=== PATIENT | female | born 1940 | race Caucasian/White ===

== ENCOUNTER → 2020-10-14 | Outpatient (CLI) | payer MEDICARE ==
--- NOTE | 2020-10-14 10:41 | RAD ---
Bilateral lower extremity arterial duplex ultrasound study without comparison for nonhealing wounds t he bilateral lower extremities. TECHNIQUE AND FINDINGS: Real-time grayscale and color and spectral Doppler evaluation of the arteries of lower extremities is performed. This exam is limited by severe edema bilaterally. On the right, there is a change from triphasic flow to monophasic flow similar in the distribution of the distal SFA and/or popliteal artery suggesting hemodynamically significant stenosis at this level . No focal velocity elevations are identified in any distribution. Flow remains monophasic in the pos terior tibial and anterior tibial arteries, and the peroneal artery is not identified. Dorsalis pedis artery is patent and biphasic. On the left, there is monophasic flow within the common femoral artery, without parvus tardus morphol ogy. This may reflect hemodynamically significant iliac artery stenosis or may be spurious. There is triphasic flow within the proximal superficial femoral artery, however there is been a change to mono phasic flow within the mid to distal SFA that persists through the popliteal, proximal posterior tibi al, peroneal, and anterior tibial arterial distributions, with nondenominational of biphasic flow within th e distal [employer] and dorsalis pedis artery. Once again there are no focal velocity elevations to suggest location discrete hemodynamically significant stenoses. IMPRESSION: 1. Possible hemodynamically significant stenosis at the level the right distal SFA and/or popliteal a rtery. There may be significant disease in the runoff vessels as well. 2. Abnormal waveform in the left common femoral artery which may indicate iliac inflow disease, thoug h this may be spurious as well. 3. Possible hemodynamically significant stenosis in the mid to distal left SFA. Once again there may be significant disease in the runoff vessels of the left leg as well. Electronically signed by: Pastor Yanes MD (10/14/2020 10:39 AM) [id number]
--- NOTE | 2020-10-14 11:16 | RAD ---
Examination: US VENOUS REFLUX History: NON-HEALING WOUNDS BLE / Comparison/Correlation: None Findings: Bilateral lower extremity venous ultrasound exam was performed for assessment of reflux. Si gnificant edema and tortuous vessels with multiple varicosities significantly limit this exam. Reflux in the provided in seconds and diameters are provided in centimeters. Right great saphenous vein Junction 2.6 seconds and 0.88 cm Proximal 2 seconds and 0.66 cm Mid 2 seconds and 0.33 cm Distal 0 seconds and 0.25 cm Right small saphenous vein Proximal: not visualized Mid 1.6 seconds and 0.3 cm Distal colon not visualized Left great saphenous vein Junction 2 seconds and 0.8 cm Proximal 1.3 seconds and 0.36 cm Mid 0.7 seconds and 0.53 cm Distal 2.3 seconds and 0.25 cm Left small saphenous vein Proximal 0.52 seconds and 0.52 cm Mid: Not visualized Distal colon not visualized Impression: Venous reflux is significant involving the great saphenous vein bilaterally and the right small saphe nous vein. Exam is limited as stated above. Electronically signed by: Amari Cole MD (10/14/2020 11:14 AM) [id number]
== END ==
LOC: US 07:03
PROVIDERS: ATTEND Preventive Medicine Undersea and Hyperbaric Medicine
DX: I70.213 Atherosclerosis of native arteries of extremities with intermittent claudication, bilateral legs (principal); I87.2 Venous insufficiency (chronic) (peripheral); L97.909 Non-pressure chronic ulcer of unspecified part of unspecified lower leg with unspecified severity
CPT/HCPCS: 93925; 93970